=== PATIENT | female | born 1990 | race Caucasian/White ===

== ENCOUNTER 2017-02-24 17:24 | Inpatient (IN) | payer OTHER ==
[~2017-02-24] VITALS: Ht 165.1 cm; Wt 50.8 kg
[~2017-02-24 17:24] MED LIST: BCPILLS PO; IBUP-1451 PO; ONDA4TAB46 PO
[2017-02-24] MEDS ORDERED: SODIUM CHLORIDE 0.9% 1000ML 1,000 ML IV STA (17:50)
[2017-02-24] MEDS ORDERED: ONDANSETRON INJ 2 MG/ML 2 ML VIAL IV STA (17:50)
[2017-02-24] MEDS ORDERED: GI COCKTAIL PO ONE (18:00)
[2017-02-24] MEDS ORDERED: ALUMINUM/MAGNESIUM SUSP 30 ML UDC ONE (18:08)
[2017-02-24] MEDS ORDERED: LIDOCAINE HCL 2% VISC SOLN 20 ML UDC ONE (18:08)
[2017-02-24 18:27] LABS: BASO % 0.1 %; BASO ABS # 0.02 K/uL (0-0.2); COMPLETE YES; EOS % 1.2 %; HEMATOCRIT 41.1 % (37-47); IG% 0.3 %; LYMPH % 13.1 %; LYMPH ABS # 2.33 K/uL (1.2-3.4); MEAN CELL VOLUME 91.1 fL (80-100); MEAN CORPUSCULAR HEMOGLOBIN 32.8 pg (25-34); MEAN PLATELET VOLUME 9.9 fL (7.4-10.4); MONO % 7.9 %; NEUT % 77.4 %; PLATELET COUNT 222 K/uL (130-400); RED BLOOD COUNT 4.51 M/uL (4.2-5.4); WHITE BLOOD COUNT 17.81 K/uL (4.8-10.8)
[2017-02-24 18:32] LABS: MANUAL MICROSCOPIC REQUIRED? YES; REVIEW REQ? NO; SULFASALICYLIC ACID POS (NEG); URINE APPEARANCE SLIGHTLY CLOUDY (CLEAR); URINE COLOR ORANGE; URINE SPECIFIC GRAVITY 1.035 (1.000-1.030)
[2017-02-24 18:38] LABS: URINE BACTERIA 1+ (NEG); URINE RBC 0-4 /hpf (0-4)
[2017-02-24 18:38] LABS: BUN/CREATININE RATIO 10.4 (10-20); CALCIUM 9.5 mg/dl (8.5-10.1); CREATININE 0.71 mg/dl (0.60-1.20); POTASSIUM 3.8 mmol/L (3.5-5.1)
--- NOTE | 2017-02-24 18:38 | DIAGNOSTIC IMAGING REPORT ---
PA CHEST WITH ABDOMINAL SERIES CLINICAL HISTORY: Right upper quadrant abdominal pain. Nausea. FINDINGS: A PA chest radiograph is compared to study dated 04/05/2016. The cardiomediastinal silhouette is unremarkable. The lungs and pleural spaces are clear. No pneumothorax is seen. The bony thorax is grossly intact. Supine and erect abdominal radiographs are correlated with abdominal CT dated 04/17/2013. There is a nonobstructed abdominal bowel gas pattern. No evidence of intraperitoneal free air is seen. There is mild to moderate colonic fecal retention. There are no abnormal abdominal calcifications. Surgical clips are seen in the right lower quadrant and right pelvis. A phlebolith is noted in the left hemipelvis. The lumbosacral spine and bony pelvis appear intact. IMPRESSION: 1. No active disease in the chest. 2. Nonobstructed abdominal bowel gas pattern. Electronically signed by: Jeison Allen M.D. 02/24/2017 6:36 PM Dictated Date/Time: 02/24/2017 6:35 PM
[2017-02-24 18:39] LABS: URINE MUCUS PRESENT (NONE PRSENT); ZZUR CULT IF INDIC CLEAN CATCH YES
[2017-02-24] MEDS ORDERED: MoRPHine SULFATE 4 MG/ML 1 ML CARP\\VIAL IV STA (19:33)
--- NOTE | 2017-02-24 20:11 | DIAGNOSTIC IMAGING REPORT ---
ULTRASOUND RIGHT UPPER QUADRANT ABDOMEN CLINICAL HISTORY: Right upper quadrant abdominal pain. COMPARISON STUDY: Abdominal CT dated 04/17/2013. TECHNIQUE: Real-time, grayscale, and color flow sonography of the right upper quadrant of the abdomen was performed. Images are reviewed in the transverse and longitudinal planes. FINDINGS: Liver: The liver is normal in size and echotexture. There is no intrahepatic biliary ductal dilatation. The main portal vein is patent. Gallbladder: There are calcified gallstones and biliary sludge. The gallbladder is mildly distended. There is minimal edema of the gallbladder wall which does not appear thickened. No pericholecystic fluid is seen. A sonographic Pina's sign is reportedly absent. The common bile duct measures up to 0.5 cm in diameter. Pancreas: Visualized portions of the pancreatic head and body are normal in appearance. A prominent peripancreatic lymph node is incidentally noted. The splenic vein is patent. Right kidney: Survey images of the right kidney demonstrate normal size and echotexture. There is no hydronephrosis. Ascites: None. IMPRESSION: Cholelithiasis and biliary sludge with findings concerning for acute cholecystitis. Surgical consultation is advised. Electronically signed by: Jeison Allen M.D. 02/24/2017 8:09 PM Dictated Date/Time: 02/24/2017 8:05 PM
[2017-02-24] MEDS ORDERED: METRONIDAZOLE 500MG / 100ML NSS IV STA (20:37)
[2017-02-24] MEDS ORDERED: CIPROFLOXACIN 400MG / 200ML D5W IV STA (20:37)
[2017-02-24] MEDS ORDERED: MoRPHine SULFATE 10 MG/ML CARP/VIAL IV STA (20:39)
--- NOTE | 2017-02-24 21:16 | History and Physical ---
History & Physical Date Feb 24, 2017. Chief Complaint RUQ pain History of Present Illness The patient is a 27 year old female with complaints of RUQ pain. found on u/s to have evidence of acute cholecystitis for OR in am wbc- 17.8 Past Medical/Surgical History Medical Problems: (1) Asthma (2) Intrauterine (3) Ovarian cyst (4) Tobacco user (5) Vaginal delivery Surgical Problems: (1) S/P tonsillectomy (2) S/P wrist surgery Additional History Hepatic Disease: No Kidney Disease: No Hypertension: No Heart Disease: No Bleeding Tendencies: No Allergies Coded Allergies: Naproxen (Verified Allergy, Mild, RASH, 09/24/15) Penicillins (Verified Allergy, Unknown, RASH, 08/22/15) Tramadol (Verified Allergy, Unknown, ., 08/22/15) Codeine (Verified Adverse Reaction, Intermediate, NAUSEA, 08/22/15) Acetaminophen (Verified Adverse Reaction, Unknown, pain in abdomen, vomiting, 08/22/15) Home Medications No Active Prescriptions or Reported Meds Physical Examination Skin: warm/dry, no rash Eyes: sclerae normal Head: atraumatic Neck: supple Respiratory/Chest: no respiratory distress Cardiovascular: regular rate, rhythm Abdomen / GI: + pertinent finding (RUQ tenderness) Neurologic/Psych: alert Diagnosis acute cholecystitis Plan of Treatment admit, IV meds, atbx- for laparoscopic cholecystectomy tomorrow npo after midnight
[2017-02-24] MEDS ORDERED: ONDANSETRON INJ 2 MG/ML 2 ML VIAL IV PRN (21:30)
[2017-02-24] MEDS ORDERED: PROMETHAZINE HCL INJ 25 MG in SODIUM CHLORIDE 0.9% 50ML 50 ML IV PRN (21:30)
[2017-02-24] MEDS ORDERED: KETOROLAC TROMETHAMINE 30 MG/ML VIAL ONE (21:38)
[2017-02-24] MEDS ORDERED: PROMETHAZINE HCL INJ 12.5 MG in SODIUM CHLORIDE 0.9% 50ML 50 ML IV PRN (22:00)
[2017-02-24 22:10] VITALS: BP 101/67; PULSE 73; TEMP 37.4; O2SAT 98; Ht 165.1 cm; Wt 50.8 kg
[2017-02-24] MEDS: KETOROLAC TROMETHAMINE 30 MG/ML VIAL IV. SCH (22:25)
[2017-02-24] MEDS: LACTATED RINGER'S 1000ML 1,000 ML IV SCH (22:26)
[2017-02-24] MEDS: HYDROmorphone INJ 0.5 MG/0.5 ML SYR IV PRN (22:35)
[2017-02-24 23:16] VITALS: BP 102/66; PULSE 68; TEMP 37; O2SAT 97
--- NOTE | 2017-02-24 23:59 | EMERGENCY ROOM VISIT NOTE ---
History Report prepared by Alber: Azael Kaye Under the Supervision of: Dr. Jose Evans D.O. First contact with patient: 17:39 Chief Complaint: ABDOMINAL PAIN Stated Complaint: PAIN IN UPPER ABDOMINAL AREA History of Present Illness The patient is a 27 year old female who presents to the Emergency Room with complaints of worsening abdominal pain beginning 4-5 days ago. The patient states her discomfort is just under the right rib, and she has never had this before. She reports she vomited the first night she had it, but she has not since. The patient notes she has been experiencing constant nausea and a mild cough. She states eating makes her discomfort worse. The patient reports she had a hysterectomy and appendectomy 9 months ago because of her history with endometriosis. She notes she still has her gallbladder. The patient states her last bowel movement was this morning. She denies blood in stool, blood in urine , vaginal bleeding, vaginal discharge, fevers above 100.4, pain with urination, black stool, runny nose, and sorethroat. Source of History: patient Onset: 4-5 days ago Position: abdomen (below the right rib) Timing: worsening Modifying Factors (Worsening): eating Associated Symptoms: + cough, + nausea, + vomiting, No fevers, No sorethroat , No urinary symptoms Note: Denies: blood in stool, vaginal bleeding, vaginal discharge, black stool, and runny nose Review of Systems See HPI for pertinent positives & negatives. A total of 10 systems reviewed and were otherwise negative. Past Medical & Surgical Medical Problems: (1) Acute cholecystitis (2) Asthma (3) Intrauterine (4) Ovarian cyst (5) Tobacco user (6) Vaginal delivery Surgical Problems: (1) S/P tonsillectomy (2) S/P wrist surgery Family History Diabetes mellitus FHx: cancer FHx: gallbladder disease FHx: heart disease Hypertension Social History Smoking Status: Current Every Day Smoker Alcohol Use: occasionally Drug Use: none Marital Status: single Housing Status: lives with family Occupation Status: unemployed Current/Historical Medications No Active Prescriptions or Reported Meds Allergies Coded Allergies: Naproxen (Verified Allergy, Mild, RASH, 09/24/15) Penicillins (Verified Allergy, Unknown, RASH, 08/22/15) Tramadol (Verified Allergy, Unknown, ., 08/22/15) Codeine (Verified Adverse Reaction, Intermediate, NAUSEA, 08/22/15) Acetaminophen (Verified Adverse Reaction, Unknown, pain in abdomen, vomiting, 08/22/15) Physical Exam Vital Signs Date Time Temp Pulse Resp B/P (MAP) Pulse Ox O2 Delivery O2 Flow Rate FiO2 02/24/17 20:14 77 15 119/77 99 Room Air 02/24/17 19:25 83 19 109/85 99 Room Air 02/24/17 17:35 37.1 78 18 123/79 96 Room Air Physical Exam GENERAL: Sitting up in bed, disheveled, alert, minimal distress, non-toxic, holding right upper quadrant. EYE EXAM: normal conjunctiva, PERRL and EOM's grossly intact OROPHARYNX: no exudate, no erythema, lips, buccal mucosa, and tongue normal and mucous membranes are moist NECK: supple, no nuchal rigidity, no adenopathy, non-tender LUNGS: Clear to auscultation. Normal chest wall mechanics HEART: no murmurs, S1 normal and S2 normal ABDOMEN: abdomen soft, tender in the right upper quadrant, normo-active bowel sounds, no masses, no rebound or guarding. BACK: Back is symmetrical on inspection and there is no deformity, no midline tenderness, no CVA tenderness. SKIN: no rashes and no bruising UPPER EXTREMITIES: upper extremities are grossly normal. LOWER EXTREMITIES: No pitting edema. NEURO EXAM: Normal sensorium, cranial nerves II-XII grossly intact, normal speech, no gross weakness of arms, no gross weakness of legs. Medical Decision & Procedures ER Provider Diagnostic Interpretation: Radiology results as stated below per my review and the radiologist's interpretation: PA CHEST WITH ABDOMINAL SERIES CLINICAL HISTORY: Right upper quadrant abdominal pain. Nausea. FINDINGS: A PA chest radiograph is compared to study dated 04/05/2016. The cardiomediastinal silhouette is unremarkable. The lungs and pleural spaces are clear. No pneumothorax is seen. The bony thorax is grossly intact. Supine and erect abdominal radiographs are correlated with abdominal CT dated 04/17/2013. There is a nonobstructed abdominal bowel gas pattern. No evidence of intraperitoneal free air is seen. There is mild to moderate colonic fecal retention. There are no abnormal abdominal calcifications. Surgical clips are seen in the right lower quadrant and right pelvis. A phlebolith is noted in the left hemipelvis. The lumbosacral spine and bony pelvis appear intact. IMPRESSION: 1. No active disease in the chest. 2. Nonobstructed abdominal bowel gas pattern. Electronically signed by: Jeison Allen M.D. 02/24/2017 6:36 PM Dictated Date/Time: 02/24/2017 6:35 PM ULTRASOUND RIGHT UPPER QUADRANT ABDOMEN CLINICAL HISTORY: Right upper quadrant abdominal pain. COMPARISON STUDY: Abdominal CT dated 04/17/2013. TECHNIQUE: Real-time, grayscale, and color flow sonography of the right upper quadrant of the abdomen was performed. Images are reviewed in the transverse and longitudinal planes. FINDINGS: Liver: The liver is normal in size and echotexture. There is no intrahepatic biliary ductal dilatation. The main portal vein is patent. Gallbladder: There are calcified gallstones and biliary sludge. The gallbladder is mildly distended. There is minimal edema of the gallbladder wall which does not appear thickened. No pericholecystic fluid is seen. A sonographic Pina's sign is reportedly absent. The common bile duct measures up to 0.5 cm in diameter. Pancreas: Visualized portions of the pancreatic head and body are normal in appearance. A prominent peripancreatic lymph node is incidentally noted. The splenic vein is patent. Right kidney: Survey images of the right kidney demonstrate normal size and echotexture. There is no hydronephrosis. Ascites: None. IMPRESSION: Cholelithiasis and biliary sludge with findings concerning for acute cholecystitis. Surgical consultation is advised. Electronically signed by: Jeison Allen M.D. 02/24/2017 8:09 PM Dictated Date/Time: 02/24/2017 8:05 PM Laboratory Results 02/24/17 17:59 Red Blood Count 4.51, Mean Corpuscular Volume 91.1, Mean Corpuscular Hemoglobin 32.8, Mean Corpuscular Hemoglobin Concent 36.0, Mean Platelet Volume 9.9, Neutrophils (%) (Auto) 77.4, Lymphocytes (%) (Auto) 13.1, Monocytes (%) (Auto) 7.9, Eosinophils (%) (Auto) 1.2, Basophils (%) (Auto) 0.1, Neutrophils # (Auto) 13.78, Lymphocytes # (Auto) 2.33, Monocytes # (Auto) 1.40, Eosinophils # (Auto) 0.22, Basophils # (Auto) 0.02 02/24/17 17:59 Test 02/24/17 00:00 02/24/17 17:59 Urine Color ORANGE Urine Appearance SLIGHTLY CLOUDY (CLEAR) Urine pH (4.5-7.5) Urine Specific [place] 1.035 (1.000-1.030) Urine Protein (NEG) Urine Glucose (UA) (NEG) Urine Ketones (NEG) Urine Occult Blood (NEG) Urine Nitrite (NEG) Urine Bilirubin (NEG) Urine Urobilinogen (NEG) Urine Leukocyte Esterase (NEG) Urine RBC 0-4 /hpf (0-4) Urine WBC 1-5 /hpf (0-5) Urine Epithelial Cells >30 /lpf (0-5) Urine Bacteria 1+ (NEG) Urine Mucus PRESENT (NONE PRSENT) Urine Test NEG (NEG) White Blood Count 17.81 K/uL (4.8-10.8) Red Blood Count 4.51 M/uL (4.2-5.4) Hemoglobin 14.8 g/dL (12.0-16.0) Hematocrit 41.1 % (37-47) Mean Corpuscular Volume 91.1 fL (80-100) Mean Corpuscular Hemoglobin 32.8 pg (25-34) Mean Corpuscular Hemoglobin Concent 36.0 g/dl (32-36) Platelet Count 222 K/uL (130-400) Mean Platelet Volume 9.9 fL (7.4-10.4) Neutrophils (%) (Auto) 77.4 % Lymphocytes (%) (Auto) 13.1 % Monocytes (%) (Auto) 7.9 % Eosinophils (%) (Auto) 1.2 % Basophils (%) (Auto) 0.1 % Neutrophils # (Auto) 13.78 K/uL (1.4-6.5) Lymphocytes # (Auto) 2.33 K/uL (1.2-3.4) Monocytes # (Auto) 1.40 K/uL (0.11-0.59) Eosinophils # (Auto) 0.22 K/uL (0-0.5) Basophils # (Auto) 0.02 K/uL (0-0.2) RDW Standard Deviation 42.1 fL (36.4-46.3) RDW Coefficient of Variation 12.6 % (11.5-14.5) Immature Granulocyte % (Auto) 0.3 % Immature Granulocyte # (Auto) 0.06 K/uL (0.00-0.02) Anion Gap 6.0 mmol/L (3-11) Est Creatinine Clear Calc Drug Dose 96.3 ml/min Estimated GFR () 136.2 Estimated GFR (Non- 117.6 BUN/Creatinine Ratio 10.4 (10-20) Calcium Level 9.5 mg/dl (8.5-10.1) Total Bilirubin 0.6 mg/dl (0.2-1) Direct Bilirubin 0.2 mg/dl (0-0.2) Aspartate Amino Transf (AST/SGOT) 19 U/L (15-37) Alanine Aminotransferase (ALT/SGPT) 21 U/L (12-78) Alkaline Phosphatase 86 U/L (45-117) Total Protein 8.1 gm/dl (6.4-8.2) Albumin 3.4 gm/dl (3.4-5.0) Lipase 68 U/L (73-393) Laboratory results per my review. Medications Administered Medications (Trade) Dose Ordered Sig/Pilo Route Start Time Stop Time Status Last Admin Dose Admin Sodium Chloride 1,000 ml @ 999 mls/hr Q1H1M STAT IV 02/24/17 17:50 02/24/17 18:50 DC 02/24/17 18:13 999 MLS/HR Ondansetron HCl (Zofran Inj) 4 mg NOW STAT IV 02/24/17 17:50 02/24/17 17:51 DC 02/24/17 18:11 4 MG Lidocaine HCl (Viscous Lidocaine 2% Soln) 20 ml STK-MED ONCE .ROUTE 02/24/17 18:08 02/24/17 18:09 DC 02/24/17 18:12 10 ML Al Hydroxide/Mg Hydroxide (Maalox Susp) 30 ml STK-MED ONCE .ROUTE 02/24/17 18:08 02/24/17 18:09 DC 02/24/17 18:12 30 ML Morphine Sulfate (MoRPHine SULFATE INJ) 4 mg NOW STAT IV 02/24/17 19:33 02/24/17 19:34 DC 02/24/17 20:13 4 MG Metronidazole (Flagyl / Nss) 500 mg NOW STAT IV 02/24/17 20:37 02/24/17 20:39 DC 02/24/17 20:49 500 MG Ciprofloxacin/ Dextrose (Cipro / D5W) 400 mg NOW STAT IV 02/24/17 20:37 02/24/17 20:39 DC 02/24/17 20:49 400 MG Morphine Sulfate (MoRPHine SULFATE INJ) 6 mg NOW STAT IV 02/24/17 20:39 02/24/17 20:40 DC 02/24/17 20:50 6 MG Lactated Ringer's 1,000 ml @ 75 mls/hr [id number] IV 02/24/17 21:16 03/26/17 21:15 02/24/17 22:26 75 MLS/HR ED Course ED COURSE: Vital signs were reviewed and showed normal vitals. The patients medical record was reviewed The above diagnostic studies were performed and reviewed. ED treatments and interventions as stated above. 1743: The patient was evaluated in room C11B. A complete history and physical examination was performed. 0: Ordered Ondansetron HCl 4mg IV, Sodium Chloride 1000 ml @ 999 mls/hr IV 1807: Ordered Maalox Susp 30ml .ROUTE, Lidocaine HCl 20ml .ROUTE 1932: Ordered Morphine Sulfate 4mg IV 2022: Upon reevaluation, the patient is resting. I discussed my findings with the patient and she understands and agrees with the treatment plan. 2034: I discussed the patient's case with Dr. Mohr, [facility] General Surgery. The patient will be evaluated for further management and care. 2036: Ordered Ciprofloxacin/Dextrose 400 mg IV, Metronidazole 500mg IV 2038: Ordered Morphine Sulfate 6mg IV Based on the patients age, coexisting illnesses, exam and lab findings the decision to treat as an inpatient was made. The patient remained stable while under my care. The patient will be evaluated for further management. Medical Decision Differential diagnoses includes but is not limited to gastritis, peptic ulcer disease, GERD, gallbladder disease, pancreatitis, small bowel obstruction, acute coronary syndrome, pericarditis, ischemic bowel, irritable bowel disease, irritable bowel syndrome, appendicitis, diverticulitis, malignancy, hernia, urinary tract infection, torsion, /ectopic (if female), perforation, trauma, infectious. Patient is a 27-year-old female who presents to ER for right upper quadrant abdominal pain which is worsening over the past 4 days. Leukocytosis of 17, 000. BMP all LFTs, bilirubin lipase is unremarkable. UA was negative. was negative. Ultrasound shows gallbladder wall thickening and sludge and stones suggesting cholecystitis. Her exam along with her leukocytosis helps to confirm this diagnosis. Discussed with general surgery. Patient was given IV antibiotics. She is given IV morphine. She was updated bedside admitted to general surgery for acute cholecystitis. Medication Reconcilliation Current Medication List: was personally reviewed by me Blood Pressure Screening Patient's blood pressure: Normal blood pressure Blood pressure disposition: Did not require urgent referral Consults Time Called: 2031 Consulting Physician: Dr. Mohr, [facility] General Surgery Returned Call: 2034 I discussed the patient's case with Dr. Mohr, [facility] Hospitalist. The patient will be evaluated for further management and care. Impression Primary Impression: Acute cholecystitis Scribe Attestation The scribe's documentation has been prepared under my direction and personally reviewed by me in its entirety. I confirm that the note above accurately reflects all work, treatment, procedures, and medical decision making performed by me. Departure Information Dispostion Being Evaluated By Hospitalist Prescriptions No Active Prescriptions or Reported Meds Referrals Emili [email or web address]. (PCP) Patient Instructions My [facility]
[2017-02-25] VITALS (8 sets, daily range): BP systolic 99–119; BP diastolic 64–72; PULSE 50–76; TEMP 37–37.2; O2SAT 98–100
[2017-02-25] MEDS: HYDROmorphone INJ 0.5 MG/0.5 ML SYR IV PRN ×5 (01:52→19:45)
[2017-02-25] MEDS: KETOROLAC TROMETHAMINE 30 MG/ML VIAL IV. SCH ×3 (03:01→15:35)
--- NOTE | 2017-02-25 05:19 | Surgery Progress Note ---
Surgery Progress Note Date of Service Feb 25, 2017. Subjective sleeping/ awakened- doing ok Objective Vital Signs: Date Time Temp Pulse Resp B/P (MAP) Pulse Ox O2 Delivery O2 Flow Rate FiO2 02/24/17 23:42 Room Air 02/24/17 23:16 37.0 68 16 102/66 (78) 97 Room Air 02/24/17 22:10 37.4 73 16 101/67 98 Room Air 02/24/17 21:44 77 14 121/81 99 Room Air 02/24/17 20:14 77 15 119/77 99 Room Air 02/24/17 19:25 83 19 109/85 99 Room Air 02/24/17 17:35 37.1 78 18 123/79 96 Room Air General Appearance: no apparent distress Respiratory/Chest: no respiratory distress Laboratory Results: Results Past 24 Hours Test 02/24/17 17:59 Range/Units White Blood Count 17.81 4.8-10.8 K/uL Red Blood Count 4.51 4.2-5.4 M/uL Hemoglobin 14.8 12.0-16.0 g/dL Hematocrit 41.1 37-47 % Mean Corpuscular Volume 91.1 80-100 fL Mean Corpuscular Hemoglobin 32.8 25-34 pg Mean Corpuscular Hemoglobin Concent 36.0 32-36 g/dl Platelet Count 222 130-400 K/uL Mean Platelet Volume 9.9 7.4-10.4 fL Neutrophils (%) (Auto) 77.4 % Lymphocytes (%) (Auto) 13.1 % Monocytes (%) (Auto) 7.9 % Eosinophils (%) (Auto) 1.2 % Basophils (%) (Auto) 0.1 % Neutrophils # (Auto) 13.78 1.4-6.5 K/uL Lymphocytes # (Auto) 2.33 1.2-3.4 K/uL Monocytes # (Auto) 1.40 0.11-0.59 K/uL Eosinophils # (Auto) 0.22 0-0.5 K/uL Basophils # (Auto) 0.02 0-0.2 K/uL RDW Standard Deviation 42.1 36.4-46.3 fL RDW Coefficient of Variation 12.6 11.5-14.5 % Immature Granulocyte % (Auto) 0.3 % Immature Granulocyte # (Auto) 0.06 0.00-0.02 K/uL Sodium Level 137 136-145 mmol/L Potassium Level 3.8 3.5-5.1 mmol/L Chloride Level 103 98-107 mmol/L Carbon Dioxide Level 28 21-32 mmol/L Anion Gap 6.0 3-11 mmol/L Blood Urea Nitrogen 7 7-18 mg/dl Creatinine 0.71 0.60-1.20 mg/dl Est Creatinine Clear Calc Drug Dose 96.3 ml/min Estimated GFR () 136.2 Estimated GFR (Non- 117.6 BUN/Creatinine Ratio 10.4 10-20 Random Glucose 95 70-99 mg/dl Calcium Level 9.5 8.5-10.1 mg/dl Total Bilirubin 0.6 0.2-1 mg/dl Direct Bilirubin 0.2 0-0.2 mg/dl Aspartate Amino Transf (AST/SGOT) 19 15-37 U/L Alanine Aminotransferase (ALT/SGPT) 21 12-78 U/L Alkaline Phosphatase 86 45-117 U/L Total Protein 8.1 6.4-8.2 gm/dl Albumin 3.4 3.4-5.0 gm/dl Lipase 68 73-393 U/L Assessment & Plan 02/25/17- for lap luciano today- no acute chgs
[2017-02-25] MEDS: CIPROFLOXACIN / D5W 400 MG in PREMIXED IN D5W 200 ML IV SCH ×2 (09:06→21:24)
[2017-02-25] MEDS: LACTATED RINGER'S 1000ML 1,000 ML IV SCH ×2 (10:41→23:40)
[2017-02-25] MEDS: HYDROmorphone INJ 1 MG/ML SYR IV PRN ×6 (13:50→22:58)
[2017-02-25] MEDS ORDERED: LABETALOL HCL IV 5 MG/ML 20ML IV PRN (14:30)
[2017-02-25] MEDS ORDERED: EpHEDrine SULFATE INJ 50 MG/ML AMP IV PRN (14:30)
[2017-02-25] MEDS ORDERED: ONDANSETRON INJ 2 MG/ML 2 ML VIAL IV PRN (14:30)
[2017-02-25] MEDS ORDERED: MEPERIDINE HCL 25 MG/ML CARP IV PRN (14:30)
[2017-02-25] MEDS ORDERED: ATROPINE SULFATE 0.1 MG/ML 5ML SYR IV PRN (14:30)
[2017-02-25] MEDS ORDERED: PROPOFOL IV EMULSION 10 MG/ML 20 ML VIAL IV ONE (15:21)
[2017-02-25] MEDS ORDERED: LIDOCAINE HCL 2% 2 ML VIAL (20MG/ML) ONE (15:21)
[2017-02-25] MEDS ORDERED: FENTANYL CITRATE INJ 50 MCG/1 ML 2 ML VIAL ONE ×5 (15:22→18:10)
[2017-02-25] MEDS ORDERED: ROCURONIUM BROMIDE 10 MG/ML 5 ML VIAL IV ONE (15:22)
[2017-02-25] MEDS ORDERED: ONDANSETRON INJ 2 MG/ML 2 ML VIAL ONE ×2 (15:22→17:54)
[2017-02-25] MEDS ORDERED: MIDAZOLAM HCL 1 MG/ML 2ML VIAL ONE (15:22)
[2017-02-25] MEDS ORDERED: NEOSTIGMINE METHYLSULFATE 5 MG/5 ML SYR ONE (15:23)
[2017-02-25] MEDS ORDERED: GLYCOPYRROLATE INJ 0.2 MG/ML VIAL ONE (15:23)
[2017-02-25] MEDS ORDERED: DEXAMETHASONE SOD INJ 4 MG/ML VIAL ONE (15:23)
[2017-02-25] MEDS ORDERED: BUPIVACAINE 0.5 % 5 MG/1 ML MPF 30ML VIAL ONE (16:02)
[2017-02-25] MEDS ORDERED: CONRAY 60% 50 ML VIAL ONE (16:52)
--- NOTE | 2017-02-25 17:46 | [facility] Operative Report ---
Operative Report Operative Date Feb 25, 2017. Pre-Operative Diagnosis acute cholecystitis Post-Operative Diagnosis acute cholecystitis and severe chronic cholecystitis Procedure(s) Performed Laparoscopic Cholecystectomy with drain Surgeon Dr. Mohr Jack Winder Surgeon(s) none Estimated Blood Loss 30mL Findings severe acute and chronic inflammation and adhesions, hydrops Specimens A: gallbladder & contents Drains #15 Rd TARYN Anesthesia gen Complication(s) None Disposition Recovery Room / PACU I attest to the content of the Intraoperative Record and any orders documented therein. Any exceptions are noted below.
--- NOTE | 2017-02-25 18:14 | Anesthesiology Progress Note ---
Anesthesia Post Op Note Date & Time Feb 25, 2017 at 18:14 Vital Signs Pain Intensity: 10 Vital Signs Past 12 Hours Date Time Temp Pulse Resp B/P (MAP) Pulse Ox O2 Delivery O2 Flow Rate FiO2 02/25/17 17:51 37.3 54 20 129/69 100 Oxymask 10 02/25/17 14:55 37.0 50 18 109/69 (82) 100 Room Air 02/25/17 08:04 37.1 56 16 107/68 (81) 98 Room Air 02/25/17 07:25 Room Air Notes Mental Status: alert / awake / arousable, participated in evaluation Pt Amnestic to Procedure: Yes Nausea / Vomiting: adequately controlled Pain: adequately controlled Airway Patency, RR, SpO2: stable & adequate BP & HR: stable & adequate Hydration State: stable & adequate Anesthetic Complications: no major complications apparent
[2017-02-25] MEDS: FENTANYL CITRATE INJ 50 MCG/1 ML 2 ML VIAL IV PRN ×2 (18:22→18:27)
[2017-02-25] MEDS ORDERED: HYDROmorphone INJ 2 MG/ML SYR/VIAL ONE (18:30)
--- NOTE | 2017-02-25 23:22 | OPERATIVE REPORT ---
DATE OF OPERATION: 02/25/2017 NAME OF OPERATION: Laparoscopic cholecystectomy with drainage. PREOPERATIVE DIAGNOSIS: Acute cholecystitis. POSTOPERATIVE DIAGNOSIS: Severe acute and chronic cholecystitis with hydrops. STAFF SURGEON: Ru Mohr MD. ANESTHESIA: General. FINDINGS: The patient had severe adhesions to the gallbladder and very severe acute and chronic inflammation with chronic scar tissue and also hydrops of the gallbladder. DESCRIPTION OF PROCEDURE: The patient was brought in the operating room and placed on the operating table in supine position. Her abdomen was prepped and draped in usual fashion. Pneumatic stockings and orogastric tube were placed. Incision was made below the umbilicus as the patient did have a piercing above the umbilicus. Dissection was carried down to the fascia, placing a Veress needle producing pneumoperitoneum. The gallbladder was not visualized initially because it was covered with tissue. The omentum and stomach were adherent to the gallbladder. These were relatively easily taken down showing acute adhesions, but the gallbladder was severely scarred and thickened indicating severe acute and chronic cholecystitis. I aspirated of bile which was clear, indicating hydrops. Dissection was carried out at the melissa hepatis showing severe scar tissue. I was gradually able to identify the cystic duct going into the gallbladder as well as what I felt was the common bile duct. Cystic duct was clipped and transected. Then the cystic artery identified, clipped and transected. The gallbladder was then dissected away from the liver bed. There was very severe chronic scar tissue in the posterior wall. The gallbladder was placed in an Endobag. After appropriate hemostasis and irrigation, I did place a small piece of Surgicel in an area near the melissa hepatitis. A 15 round Michael-García drain was placed through the lateral 5 mm port in the subhepatic space and laterally, secured to the skin using 3-0 nylon suture. Using a 5 mm scope, the gallbladder was removed through the umbilical site. I did have to enlarge the skin incision and the fascial defect to remove the gallbladder. Fascia at the umbilicus closed using interrupted 0 Vicryl suture. The skin at the umbilicus closed using 5-0 Prolene suture. The other sites closed using subcuticular 4-0 Monocryl and Dermabond. The patient was transferred to recovery area in stable condition. I attest to the content of the Intraoperative Record and any orders documented therein. Any exception s are noted below.
[2017-02-25 23:28] LABS: HEMATOCRIT 34.2 % (37-47)
[2017-02-26 00:04] VITALS: BP 102/64; PULSE 48; TEMP 37.5; O2SAT 97
[2017-02-26] MEDS: HYDROmorphone INJ 1 MG/ML SYR IV PRN (02:03)
[2017-02-26 03:17] VITALS: BP 103/66; PULSE 54; TEMP 37.1; O2SAT 97
[2017-02-26] MEDS: HYDROmorphone INJ 0.5 MG/0.5 ML SYR IV PRN (05:18)
--- NOTE | 2017-02-26 05:32 | Surgery Progress Note ---
Surgery Progress Note Date of Service Feb 26, 2017. Subjective awake, alert expected TARYN drainage, dressings dry now Objective Vital Signs: Date Time Temp Pulse Resp B/P (MAP) Pulse Ox O2 Delivery O2 Flow Rate FiO2 02/26/17 03:17 37.1 54 16 103/66 (78) 97 Room Air 02/26/17 00:04 37.5 48 16 102/64 (77) 97 Room Air 02/25/17 22:07 37.0 76 18 100/64 (76) 98 Room Air 02/25/17 21:14 37.2 76 18 99/66 (77) 98 Room Air 02/25/17 20:10 37.2 68 18 119/68 (85) 100 Room Air 02/25/17 19:52 37.1 62 18 113/72 (86) 99 Room Air 02/25/17 19:18 37.2 53 18 107/69 (82) 98 Room Air 02/25/17 19:10 Room Air 02/25/17 19:10 98 Room Air 02/25/17 19:00 37.1 52 18 109/67 99 Room Air 02/25/17 18:50 37.1 57 18 101/68 99 Room Air 02/25/17 18:40 54 18 103/64 100 Room Air 02/25/17 18:30 60 18 108/67 100 Room Air 02/25/17 18:20 50 18 107/68 100 Room Air 02/25/17 18:10 50 20 119/69 100 Oxymask 10 02/25/17 18:00 54 20 124/69 100 Oxymask 10 02/25/17 17:51 37.3 54 20 129/69 100 Oxymask 10 02/25/17 14:55 37.0 50 18 109/69 (82) 100 Room Air 02/25/17 08:04 37.1 56 16 107/68 (81) 98 Room Air 02/25/17 07:25 Room Air General Appearance: no apparent distress Respiratory/Chest: no respiratory distress Abdomen: non distended, soft Incision(s): intact Laboratory Results: Results Past 24 Hours Test 02/25/17 23:03 02/26/17 05:00 Range/Units Hemoglobin 11.9 12.0-16.0 g/dL Hematocrit 34.2 37-47 % Assessment & Plan 02/26/17- s/p lap luciano w/ drain- very difficult operation secondary to scar tissue- cont to monitor for bleeding, cont IV atbx hold subcu Heparin, mobilize 02/25/17- for lap luciano today- no acute chgs 02/25/17- for lap luciano today- no acute chgs
[2017-02-26] MEDS: SODIUM CHLORIDE 0.9% 1000ML 1,000 ML IV SCH (06:01)
[2017-02-26] MEDS ORDERED: NALOXONE HCL 0.4 MG/1 ML VIAL/CARP IV PRN (06:15)
[2017-02-26 06:23] LABS: HEMATOCRIT 36.1 % (37-47); MEAN CELL VOLUME 91.4 fL (80-100); MEAN CORPUSCULAR HEMOGLOBIN 31.4 pg (25-34); MEAN CORPUSCULAR HGB CONC 34.3 g/dl (32-36); PLATELET COUNT 212 K/uL (130-400); RED BLOOD COUNT 3.95 M/uL (4.2-5.4); WHITE BLOOD COUNT 13.94 K/uL (4.8-10.8)
[2017-02-26 06:53] LABS: ALT/SGPT 33 U/L (12-78); AST/SGOT 33 U/L (15-37); BLOOD UREA NITROGEN 6 mg/dl (7-18); BUN/CREATININE RATIO 11.3 (10-20); CALCIUM 8.9 mg/dl (8.5-10.1); CARBON DIOXIDE 25 mmol/L (21-32); CHLORIDE 109 mmol/L (98-107); CREATININE 0.55 mg/dl (0.60-1.20); GLUCOSE 102 mg/dl (70-99); POTASSIUM 3.9 mmol/L (3.5-5.1); SODIUM 142 mmol/L (136-145)
[2017-02-26 06:57] LABS: ALB/GLOB RATIO 0.7 (0.9-2); ALKALINE PHOSPHATASE 86 U/L (45-117)
[2017-02-26 07:05] VITALS: BP 114/75; PULSE 68; TEMP 37.2; O2SAT 96
[2017-02-26] MEDS: HYDROmorphone HCL 0.5MG/ML 50 ML CASSETTE IV PRN ×3 (07:45→23:21)
[2017-02-26] MEDS: CIPROFLOXACIN / D5W 400 MG in PREMIXED IN D5W 200 ML IV SCH ×2 (09:49→21:21)
[2017-02-26 10:49] VITALS: BP 109/74; PULSE 75; TEMP 37.4; O2SAT 99
[2017-02-26] MEDS: LACTATED RINGER'S 1000ML 1,000 ML IV SCH (12:41)
[2017-02-26] MEDS ORDERED: NURSING VERBAL MED ORDER ONE (13:15)
[2017-02-26 15:20] VITALS: BP 110/71; PULSE 76; TEMP 37.3; O2SAT 97
[2017-02-26 19:26] VITALS: BP 119/82; PULSE 85; TEMP 37.6; O2SAT 97
[2017-02-27] VITALS (7 sets, daily range): BP systolic 107–162; BP diastolic 69–109; PULSE 62–67; TEMP 37.1–37.4; O2SAT 97–99
[2017-02-27] MEDS: LACTATED RINGER'S 1000ML 1,000 ML IV SCH (01:54)
--- NOTE | 2017-02-27 05:40 | Surgery Progress Note ---
Surgery Progress Note Date of Service Feb 27, 2017. 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 Objective Vital Signs: Date Time Temp Pulse Resp B/P (MAP) Pulse Ox O2 Delivery O2 Flow Rate FiO2 02/27/17 04:36 37.3 67 16 107/69 (82) 98 Room Air 02/27/17 00:20 37.2 65 16 111/71 (84) 97 Room Air 02/27/17 00:00 Room Air 02/26/17 19:26 37.6 85 18 119/82 (94) 97 Room Air 02/26/17 16:20 Room Air 02/26/17 15:20 37.3 76 18 110/71 (84) 97 Room Air 02/26/17 10:49 37.4 75 16 109/74 (86) 99 Room Air 02/26/17 07:45 Room Air 02/26/17 07:05 37.2 68 16 114/75 (88) 96 Room Air General Appearance: no apparent distress Respiratory/Chest: no respiratory distress Abdomen: soft Incision(s): intact Laboratory Results: Results Past 24 Hours Test 02/26/17 05:49 Range/Units White Blood Count 13.94 4.8-10.8 K/uL Red Blood Count 3.95 4.2-5.4 M/uL Hemoglobin 12.4 12.0-16.0 g/dL Hematocrit 36.1 37-47 % Mean Corpuscular Volume 91.4 80-100 fL Mean Corpuscular Hemoglobin 31.4 25-34 pg Mean Corpuscular Hemoglobin Concent 34.3 32-36 g/dl RDW Standard Deviation 42.0 36.4-46.3 fL RDW Coefficient of Variation 12.5 11.5-14.5 % Platelet Count 212 130-400 K/uL Mean Platelet Volume 10.0 7.4-10.4 fL Sodium Level 142 136-145 mmol/L Potassium Level 3.9 3.5-5.1 mmol/L Chloride Level 109 98-107 mmol/L Carbon Dioxide Level 25 21-32 mmol/L Anion Gap 8.0 3-11 mmol/L Blood Urea Nitrogen 6 7-18 mg/dl Creatinine 0.55 0.60-1.20 mg/dl Est Creatinine Clear Calc Drug Dose 124.3 ml/min Estimated GFR () > 150.0 Estimated GFR (Non- 129.5 BUN/Creatinine Ratio 11.3 10-20 Random Glucose 102 70-99 mg/dl Calcium Level 8.9 8.5-10.1 mg/dl Total Bilirubin 0.5 0.2-1 mg/dl Direct Bilirubin 0.1 0-0.2 mg/dl Aspartate Amino Transf (AST/SGOT) 33 15-37 U/L Alanine Aminotransferase (ALT/SGPT) 33 12-78 U/L Alkaline Phosphatase 86 45-117 U/L Total Protein 6.7 6.4-8.2 gm/dl Albumin 2.7 3.4-5.0 gm/dl Globulin 4.0 2.5-4.0 gm/dl Albumin/Globulin Ratio 0.7 0.9-2 Assessment & Plan 02/27/17- overall stable- cont TELEPHONE WORKER, IV atbx, stop IV fluids regular diet, subcu Heparin 02/26/17- s/p lap luciano w/ drain- very difficult operation secondary to scar tissue- cont to monitor for bleeding, cont IV atbx hold subcu Heparin, mobilize 02/25/17- for lap luciano today- no acute chgs 02/26/17- s/p lap luciano w/ drain- very difficult operation secondary to scar tissue- cont to monitor for bleeding, cont IV atbx hold subcu Heparin, mobilize 02/25/17- for lap luciano today- no acute chgs
[2017-02-27] MEDS: SODIUM CHLORIDE 0.9% 1000ML 1,000 ML IV SCH (06:35)
[2017-02-27] MEDS: HYDROmorphone HCL 0.5MG/ML 50 ML CASSETTE IV PRN ×2 (07:05→10:54)
[2017-02-27 07:09] LABS: INR 1.1 (0.9-1.1); PROTHROMBIN TIME (PATIENT) 12.1 SECONDS (9.0-12.0)
[2017-02-27] MEDS: CIPROFLOXACIN / D5W 400 MG in PREMIXED IN D5W 200 ML IV SCH (07:58)
[2017-02-27] MEDS ORDERED: HEPARIN SOD 5000 UNIT/0.5 ML CARP SQ SCH (08:00)
[2017-02-27] MEDS ORDERED: NICOTINE 14 MG/24 HR TDSY TD SCH (09:00)
[2017-02-27] MEDS ORDERED: OXYCODONE/ACETAMINOPHEN 5-325 TAB PO PRN (15:00)
[2017-02-27] MEDS ORDERED: HYDROmorphone INJ 0.5 MG/0.5 ML SYR IV PRN (15:00)
[2017-02-27] MEDS ORDERED: HYDROmorphone INJ 1 MG/ML SYR IV PRN (15:00)
[2017-02-27] MEDS ORDERED: OXYC-57 PO (15:15)
--- NOTE | 2017-02-27 15:18 | Discharge Instructions ---
Discharge Instructions Date of Service Feb 27, 2017. Admission Reason for Admission: Acute Cholecystitis Discharge Discharge Diagnosis / Problem: laparoscopic cholecystectomy Discharge Goals Goal(s): Decrease discomfort Activity Recommendations Activity Limitations: as noted below Lifting Limitations: no more than 10 pounds Shower/Bathe: no limitations Driving or Machine Use: resume 3 days after discharge . Instructions / Follow-Up Instructions / Follow-Up Dr. Mohr's office in 2 days to have drain removed, call [phone] to schedule, [address] Current Hospital Diet Patient's current hospital diet: Regular Diet Discharge Diet Recommended Diet: Regular Diet Procedures Procedures Performed: Laparoscopic Cholecystectomy with drain Pending Studies Studies pending at discharge: no Medical Emergencies . Who to Call and When: Medical Emergencies: If at any time you feel your situation is an emergency, please call 911 immediately. . Non-Emergent Contact Non-Emergency issues call your: Surgeon Call Non-Emergent contact if: you have a fever, temperature is above 101.5, your pain is not controlled, wound has increased pain . "Provider Documentation" section prepared by Brady Durbin. . VTE Core Measure Inpt VTE Proph given/why not?: SCD's
[2017-02-27] MEDS ORDERED: CIPR1TAB10 PO (15:19)
[2017-02-27] MEDS: OXYCODONE/ACETAMINOPHEN 5-325 TAB PO PRN ×2 (16:15→17:16)
--- NOTE | 2017-02-28 09:30 | DISCHARGE SUMMARY ---
PRIMARY DISCHARGE DIAGNOSIS: Acute and chronic cholecystitis with hydrops. PROCEDURE PERFORMED: Laparoscopic cholecystectomy. SECONDARY DISCHARGE DIAGNOSIS: Asthma. HOSPITAL COURSE: The patient is a 27-year-old female who presented to Emergency Department with complaint of right upper quadrant pain over several days. Her white count was 17,000. Ultrasound showed cholelithiasis with sludge and minimal wall edema. She was admitted to surgery service overnight and kept on IV antibiotics and laparoscopic cholecystectomy planned for the morning. She was taken to the operating room the next day. The procedure was well tolerated, although difficult. A drain was placed. Postoperatively, she required [employer]CH[employer]ECT for analgesia. Her diet was advanced over the next 2 days. By postoperative day 3, she was tolerating regular diet and oral analgesics and was stable for discharge. TARYN drainage was 15 mL overnight. The drain will be removed in the office. DISCHARGE INSTRUCTIONS: Discharge home. Follow up in the office in 2 days for removal of the drain and with Dr. Mohr the following week. DISCHARGE MEDICATIONS: Percocet 1-2 tablets every 4 hours as needed and Cipro 500 mg p.o. b.i.d. x5 days. MTDD
== END 2017-02-27 18:55 | disposition home or self-care (01) | DRG 416 ==
LOC: C.EDB 17:25 → C.MSW 21:22 → ENRESERV 21:36
PROVIDERS: ADMIT Surgery; ATTEND Surgery
PROC: 0FT40ZZ Resection of Gallbladder, Open Approach (ICD-10-PCS; principal; 2017-02-25 13:00)
DX: K81.2 Acute cholecystitis with chronic cholecystitis (principal); J45.909 Unspecified asthma, uncomplicated; F17.200 Nicotine dependence, unspecified, uncomplicated; Z83.3 Family history of diabetes mellitus; Z80.9 Family history of malignant neoplasm, unspecified; Z82.49 Family history of ischemic heart disease and other diseases of the circulatory system

== ENCOUNTER → 2017-05-29 | Outpatient (CLI) | payer OTHER ==
[~2017-05-29] MED LIST changes: -BCPILLS PO; +CIPR1TAB10 PO; -IBUP-1451 PO; -ONDA4TAB46 PO; +OXYC-57 PO
--- NOTE | 2017-05-29 10:46 | DIAGNOSTIC IMAGING REPORT ---
ULTRASOUND ABDOMEN COMPLETE CLINICAL HISTORY: Generalized abdominal pain. COMPARISON STUDY: Abdominal CT dated 04/17/2013 TECHNIQUE: Real-time, grayscale, and color flow sonography of the abdomen was performed. Images are reviewed in the transverse and longitudinal planes. FINDINGS: Liver: The liver is normal in size and echotexture. There is no intrahepatic biliary ductal dilatation. The main portal vein is patent. Gallbladder: The gallbladder is surgically absent. The common bile duct measures up to 0.5 cm in diameter. Pancreas: Visualized portions of the pancreatic head and body are normal in appearance. Spleen: The spleen is normal in size and echotexture, measuring 10.6 cm in length. Kidneys: The kidneys are normal in size and echotexture. There is no hydronephrosis. The right kidney measures 9.0 cm in length and the left kidney measures 9.5 cm in length. No shadowing calculi are identified. Abdominal vasculature: Visualized portions of the abdominal aorta and IVC are normal as imaged. Ascites: None. IMPRESSION: Unremarkable sonographic assessment of the abdomen noting status post cholecystectomy. Electronically signed by: Jeison Allen M.D. 05/29/2017 10:45 AM Dictated Date/Time: 05/29/2017 10:34 AM
== END | disposition home or self-care (01) ==
LOC: C.ULTR 09:57
PROVIDERS: ATTEND Family Medicine
DX: R10.9 Unspecified abdominal pain (principal); Z90.49 Acquired absence of other specified parts of digestive tract

== ENCOUNTER → 2017-06-05 | Outpatient (CLI) | payer OTHER ==
[~2017-06-05] MED LIST changes: +OPTIRAY 320 IV PRN
--- NOTE | 2017-06-05 08:28 | DIAGNOSTIC IMAGING REPORT ---
CT SCAN OF THE ABDOMEN AND PELVIS WITH IV CONTRAST CLINICAL HISTORY: Epigastric abdominal pain. COMPARISON STUDY: Abdominal ultrasound dated 05/29/2017. Abdominal CT dated 04/17/2013. TECHNIQUE: Following the IV administration of 116 cc of Optiray 320, CT scan of the abdomen and pelvis is performed from the lung bases to the proximal femora. Images are reviewed in the axial, sagittal, and coronal planes. IV contrast was administered without complication. A dose lowering technique was utilized adhering to the principles of ALARA. CT DOSE: 406.10 mGycm FINDINGS: Lung bases: The heart is normal in size and without pericardial effusion. There are trace pleural effusions with dependent atelectasis. Liver: The contrast-enhanced liver is normal in size and contour. The liver demonstrates diminished attenuation consistent with steatosis. There is no intrahepatic biliary ductal dilatation. The hepatic veins and portal veins are patent. There is a subtle 2.0 cm hypervascular lesion in the right lobe seen on image #59. Gallbladder: Surgically absent noting clips in the gallbladder fossa. Spleen: Normal in size and attenuation. Pancreas: Unremarkable. Adrenal glands: Unremarkable. Kidneys: The contrast enhanced kidneys are normal in size and without hydronephrosis. The kidneys enhance symmetrically. A subcentimeter cyst is noted in the interpolar right kidney. Abdominal vasculature: The abdominal aorta is normal in course and caliber. Bowel: Moderate constipation is observed. No bowel obstruction is seen. The appendix is normal in appearance. Peritoneum: There is no intraperitoneal free air or abdominal ascites. There is a small fat-containing umbilical hernia. Lymphadenopathy: None. Pelvic viscera: The bladder is normal as visualized. The uterus is surgically absent. No adnexal lesion is seen. Skeletal structures: No lytic or blastic lesions are seen. IMPRESSION: 1. There are no acute infectious or inflammatory findings in the abdomen or pelvis. 2. Trace pleural effusions. 3. Mild hepatic steatosis. 4. There is a subtle 2.0 cm hypervascular lesion in the right lobe of liver. This was not clearly seen on prior studies. This is pathologically indeterminant, and could present a focal nodular hyperplasia, focal fatty sparing, or possibly a hepatic adenoma. Follow-up with an MRI of the liver is recommended for further characterization. 5. Mild to moderate constipation. 6. Additional findings as above. Electronically signed by: Jeison Allen M.D. 06/05/2017 8:27 AM Dictated Date/Time: 06/05/2017 8:12 AM
== END | disposition home or self-care (01) ==
LOC: C.CTS 07:10
PROVIDERS: ATTEND Internal Medicine Gastroenterology
DX: K76.9 Liver disease, unspecified (principal); K59.00 Constipation, unspecified; D72.829 Elevated white blood cell count, unspecified

== ENCOUNTER → 2017-06-15 | Outpatient (CLI) | payer OTHER ==
[~2017-06-15] MED LIST changes: +GADOXETATE DISODIUM (NON-WT BASED PROCEDURE) IV PRN; -OPTIRAY 320 IV PRN
--- NOTE | 2017-06-15 08:45 | DIAGNOSTIC IMAGING REPORT ---
MRI LIVER COMBO CLINICAL HISTORY: Abnormal CT scan. Hepatic mass. TECHNIQUE: Imaging was performed prior to and following IV contrast injection (10 cc Eovist). COMPARISON STUDY: CT scan dated 06/05/2017 FINDINGS: Imaging was performed in the axial and coronal planes, before and after the administration of contrast. There is no evidence of abdominal aortic dilatation. No splenic masses are visualized. No pancreatic masses are visualized. The gallbladder surgically absent. There is no ductal dilatation. There is an 11 mm right renal cyst. There is an 18 mm mass medial aspect of the right hepatic lobe. This lesion abuts the inferior vena cava. This lesion is relatively isointense to liver on T1 and T2 weighted images. This lesion is hypervascular with early arterial opacification. On delayed images, this lesion is isointense to liver parenchyma. The signal and enhancement characteristics are indicative of focal nodular hyperplasia. IMPRESSION: 18 mm mass within the right lobe of the liver. The signal and enhancement characteristics are indicative of focal nodular hyperplasia Electronically signed by: Nicholas Hennessy M.D. 06/15/2017 8:44 AM Dictated Date/Time: 06/15/2017 8:37 AM
== END | disposition home or self-care (01) ==
LOC: C.MRI 07:06
PROVIDERS: ATTEND Internal Medicine Gastroenterology
DX: R93.8 Abnormal findings on diagnostic imaging of other specified body structures (principal); K76.89 Other specified diseases of liver

== ENCOUNTER 2017-08-17 12:21 | Emergency (ER) | payer OTHER ==
[~2017-08-17] VITALS: Ht 152.4 cm; Wt 72.9 kg
[~2017-08-17 12:21] MED LIST changes: -GADOXETATE DISODIUM (NON-WT BASED PROCEDURE) IV PRN
[2017-08-17 12:32] VITALS: TEMP 36.7; Ht 152.4 cm; Wt 72.9 kg
[2017-08-17] MEDS ORDERED: ONDA4TAB46 PO (12:49)
--- NOTE | 2017-08-17 12:58 | EMERGENCY ROOM VISIT NOTE ---
History First contact with patient: 12:33 Chief Complaint: LEG PAIN,LEG INJURY Stated Complaint: PAIN, SWELLING IN LEGS,POSS BLOOD CLOT, SENT BY History of Present Illness The patient is a 27 year old female who presents to the Emergency Room with complaints of bilateral, sharp, 7/10 leg pain. The patient also notes the following associated symptoms, leg swelling, worse on the right. This started 4 days ago and is worsening with the pain, but swelling is somewhat less. No history of clots or travel. The patient has tried no relieving factors. Worse with walking. Pt denies LOC, headache, fevers, chills, diaphoresis, visual changes, neck pain, chest pain, breathing difficulties, nausea, vomiting, abdominal pain, back pain, melena, hematochezia, urinary symptoms, numbness, weakness, lymphadenopathy, rash, or other complaints. Review of Systems See HPI for pertinent positives and negatives. A total of ten systems were reviewed and were otherwise negative. Past Medical/Surgical History Medical Problems: (1) Acute cholecystitis (2) Asthma (3) Intrauterine (4) Ovarian cyst (5) Tobacco user (6) Vaginal delivery Surgical Problems: (1) S/P appy (2) S/P cholecystectomy (3) S/P hysterectomy (4) S/P tonsillectomy (5) S/P wrist surgery Family History Diabetes mellitus FHx: cancer FHx: gallbladder disease FHx: heart disease Hypertension Social History Smoking Status: Current Every Day Smoker Alcohol Use: occasionally Drug Use: none Marital Status: single Housing Status: lives with family Occupation Status: unemployed Current/Historical Medications Scheduled PRN Ondansetron Hcl (Zofran), 4 MG PO DAILY PRN for Nausea Physical Exam Vital Signs Date Time Temp Pulse Resp B/P (MAP) Pulse Ox O2 Delivery O2 Flow Rate FiO2 08/17/17 14:57 69 08/17/17 14:39 72 18 119/98 98 Room Air 08/17/17 13:10 97 Room Air 08/17/17 12:32 36.7 83 18 104/71 97 Room Air Physical Exam GENERAL: Awake, alert, well-appearing, in no distress HENT: Normocephalic, atraumatic. Oropharynx unremarkable. EYES: Normal conjunctiva. Sclera non-icteric. NECK: Supple. No nuchal rigidity. FROM. No masses. RESPIRATORY: Clear to auscultation. No wheezes. No rales. Normal respiratory effort. CARDIAC: Normal rate. Normal rhythm. No murmurs. No rubs. Extremities warm and well perfused. Pulses equal. No JVD. GI: Soft, non-distended. No tenderness to palpation. No rebound or guarding. No masses. RECTAL: Deferred. MUSCULOSKELETAL: Atraumatic. Chest examination reveals no tenderness. The back is symmetrical on inspection without obvious abnormality. There is no CVA tenderness to palpation. No joint edema. LOWER EXTREMITIES: Calves are equal size bilaterally and mildly-tender. Trace pedal edema. No discoloration. NEURO: Normal sensorium. No sensory or motor deficits noted. SKIN: No rash or jaundice noted. Medical Decision & Procedures ER Provider Diagnostic Interpretation: Bilateral lower extremity ultrasound imaging was performed and did not reveal any evidence of DVT. Laboratory Results 08/17/17 13:05 Red Blood Count 4.32, Mean Corpuscular Volume 91.9, Mean Corpuscular Hemoglobin 31.3, Mean Corpuscular Hemoglobin Concent 34.0, Mean Platelet Volume 9.5, Neutrophils (%) (Auto) 33.5, Lymphocytes (%) (Auto) 42.9, Monocytes (%) (Auto) 7.4, Eosinophils (%) (Auto) 15.7, Basophils (%) (Auto) 0.3, Neutrophils # (Auto ) 3.09, Lymphocytes # (Auto) 3.96, Monocytes # (Auto) 0.68, Eosinophils # (Auto ) 1.45, Basophils # (Auto) 0.03 08/17/17 13:05 Test 08/17/17 13:05 White Blood Count 9.23 K/uL (4.8-10.8) Red Blood Count 4.32 M/uL (4.2-5.4) Hemoglobin 13.5 g/dL (12.0-16.0) Hematocrit 39.7 % (37-47) Mean Corpuscular Volume 91.9 fL (80-100) Mean Corpuscular Hemoglobin 31.3 pg (25-34) Mean Corpuscular Hemoglobin Concent 34.0 g/dl (32-36) Platelet Count 247 K/uL (130-400) Mean Platelet Volume 9.5 fL (7.4-10.4) Neutrophils (%) (Auto) 33.5 % Lymphocytes (%) (Auto) 42.9 % Monocytes (%) (Auto) 7.4 % Eosinophils (%) (Auto) 15.7 % Basophils (%) (Auto) 0.3 % Neutrophils # (Auto) 3.09 K/uL (1.4-6.5) Lymphocytes # (Auto) 3.96 K/uL (1.2-3.4) Monocytes # (Auto) 0.68 K/uL (0.11-0.59) Eosinophils # (Auto) 1.45 K/uL (0-0.5) Basophils # (Auto) 0.03 K/uL (0-0.2) RDW Standard Deviation 44.2 fL (36.4-46.3) RDW Coefficient of Variation 13.2 % (11.5-14.5) Immature Granulocyte % (Auto) 0.2 % Immature Granulocyte # (Auto) 0.02 K/uL (0.00-0.02) Prothrombin Time 9.8 SECONDS (9.0-12.0) Prothromb Time International Ratio 0.9 (0.9-1.1) Activated Partial Thromboplast Time 26.2 SECONDS (21.0-31.0) Partial Thromboplastin Ratio 1.0 Anion Gap 6.0 mmol/L (3-11) Est Creatinine Clear Calc Drug Dose 82.6 ml/min Estimated GFR () 99.6 Estimated GFR (Non- 85.9 BUN/Creatinine Ratio 6.8 (10-20) Calcium Level 8.3 mg/dl (8.5-10.1) Total Bilirubin 0.2 mg/dl (0.2-1) Aspartate Amino Transf (AST/SGOT) 35 U/L (15-37) Alanine Aminotransferase (ALT/SGPT) 35 U/L (12-78) Alkaline Phosphatase 75 U/L (45-117) Total Protein 6.7 gm/dl (6.4-8.2) Albumin 3.2 gm/dl (3.4-5.0) Globulin 3.5 gm/dl (2.5-4.0) Albumin/Globulin Ratio 0.9 (0.9-2) Human Chorionic Gonadotropin, Qual NEG (NEG) Medications Administered Medications (Trade) Dose Ordered Sig/Pilo Route Start Time Stop Time Status Last Admin Dose Admin Oxycodone HCl (Roxicodone Immediate Rel 5MG Home Pack) 1 [facility] UD ONCE PO 08/17/17 15:00 08/17/17 15:01 DC 08/17/17 15:09 1 [facility] Medical Decision Triage Nursing notes reviewed. The patient's presentation and history were concerning for leg pain and swelling. Etiologies such as DVT, joint effusion, infection, trauma, muscular, lymphedema , idiopathic, CHF, as well as others were entertained. The patient had minimal physical findings on examination. She had good pulses. There is no clear sign of infection. She underwent blood work which revealed a normal CBC and chemistry panel. She had slight hypoalbuminemia noted. This could contribute to some of her swelling. The patient had no evidence of DVT on ultrasound imaging. X-ray imaging or CT imaging was felt to be unnecessary. The patient had no upper leg or abdominal issues. She had no chest pain or difficulty breathing. She initially declined analgesia. She then requested something prior to discharge. She had a issue in the past with pain management. Her PCP had previously requested no prescription from the emergency department. The patient was given a few oxycodone to go home with as she has allergies to numerous other analgesics. She will have close follow-up with her primary physician. If she worsens in any way she will get back to the ER. The exact etiology of her symptoms not obvious at this time although no emergent pathology was found. The patient was educated. She indicated her understanding. By the evaluation outlined above other emergent etiologies such as those listed in the differential, as well as others, were deemed relatively unlikely. The patient was educated about the findings as listed above. All questions were answered and the patient was pleased with the treatment. Return instructions were outlined and the patient was discharged in stable condition. The patient was referred to her PCP for follow-up for a recheck of the current condition. Impression Primary Impression: Bilateral leg pain Departure Information Dispostion Home / Self-Care Referrals Emili Perez D.O. (PCP) Patient Instructions My [facility] Additional Instructions Oxycodone (OxyIR) 5mg: Take 1-2 pills every four hours for breakthrough pain. Avoid alcohol, operating machinery or dangerous equipment, working on ladders or roofs, DRIVING, or situations where being under the influence may be dangerous. It is recommended to use an eles-[id number] stool softener such as Colace, 100mg twice daily while taking this medication to avoid constipation. Acetaminophen(Tylenol) may be used for fever or pain. Use 1000mg every six hours as needed. Avoid using more than 4000mg in a 24 hour period. Warm compresses for 20 minutes at a time four times daily for 2-3 days. Rest and elevate your legs. Return to the ER immediately for any numbness, tingling, severe pain, extreme swelling in the extremity or as needed. Follow-up with your primary care physician as scheduled for a recheck of your current condition.
[2017-08-17 13:10] VITALS: O2SAT 97
[2017-08-17 13:22] LABS: BASO % 0.3 %; BASO ABS # 0.03 K/uL (0-0.2); EOS % 15.7 %; EOS ABS # 1.45 K/uL (0-0.5); HEMATOCRIT 39.7 % (37-47); HEMOGLOBIN 13.5 g/dL (12.0-16.0); IG# 0.02 K/uL (0.00-0.02); LYMPH % 42.9 %; LYMPH ABS # 3.96 K/uL (1.2-3.4); MEAN CELL VOLUME 91.9 fL (80-100); MEAN CORPUSCULAR HEMOGLOBIN 31.3 pg (25-34); MEAN PLATELET VOLUME 9.5 fL (7.4-10.4); MONO % 7.4 %; MONO ABS # 0.68 K/uL (0.11-0.59); NEUT % 33.5 %; NEUT ABS # 3.09 K/uL (1.4-6.5); PLATELET COUNT 247 K/uL (130-400); RED CELL DISTRIBUTION WIDTH CV 13.2 % (11.5-14.5); RED CELL DISTRIBUTION WIDTH SD 44.2 fL (36.4-46.3); WHITE BLOOD COUNT 9.23 K/uL (4.8-10.8)
[2017-08-17 13:32] LABS: INR 0.9 (0.9-1.1); PTT PATIENT 26.2 SECONDS (21.0-31.0)
[2017-08-17 13:40] LABS: ALBUMIN 3.2 gm/dl (3.4-5.0); CALCIUM 8.3 mg/dl (8.5-10.1); CREATININE 0.92 mg/dl (0.60-1.20); POTASSIUM 4.5 mmol/L (3.5-5.1)
[2017-08-17 13:42] LABS: TOTAL PROTEIN 6.7 gm/dl (6.4-8.2)
--- NOTE | 2017-08-17 14:30 | DIAGNOSTIC IMAGING REPORT ---
BILATERAL LOWER EXTREMITY VENOUS DOPPLER HISTORY: bilateral, R>L leg swelling, eval for DVT COMPARISON STUDY: None. FINDINGS: There is normal compressibility, flow, and augmentation within the bilateral lower extremity deep venous systems. IMPRESSION: No DVT within the right or left lower extremity. Electronically signed by: Brent Hurtado M.D. 08/17/2017 2:29 PM Dictated Date/Time: 08/17/2017 2:29 PM
[2017-08-17 14:39] VITALS: BP 119/98; O2SAT 98
[2017-08-17 14:57] VITALS: PULSE 69
[2017-08-17] MEDS ORDERED: OXYCODONE IR HOME PACK PO ONE (15:00)
== END 2017-08-17 15:09 | disposition home or self-care (01) ==
LOC: C.EDB 12:22 → C.EDA 15:09
DX: M79.604 Pain in right leg (principal); M79.605 Pain in left leg; R60.0 Localized edema; E88.09 Other disorders of plasma-protein metabolism, not elsewhere classified; J45.909 Unspecified asthma, uncomplicated; F17.200 Nicotine dependence, unspecified, uncomplicated; Z88.6 Allergy status to analgesic agent; Z83.3 Family history of diabetes mellitus; Z82.49 Family history of ischemic heart disease and other diseases of the circulatory system

== ENCOUNTER 2017-09-04 10:40 | Emergency (ER) | payer OTHER ==
[~2017-09-04] VITALS: Ht 152.4 cm; Wt 75.2 kg
[~2017-09-04 10:40] MED LIST changes: -CIPR1TAB10 PO; +ONDA4TAB46 PO; -OXYC-57 PO
[2017-09-04 10:43] VITALS: TEMP 36.7; Ht 152.4 cm; Wt 75.2 kg
--- NOTE | 2017-09-04 11:33 | DIAGNOSTIC IMAGING REPORT ---
L ANKLE MIN 3 VIEWS ROUTINE CLINICAL HISTORY: Left ankle pain and swelling. No recent trauma. COMPARISON: Left tibia and fibula radiographs September 24, 2015. FINDINGS: Alignment of the left ankle is anatomic. Talar dome is intact. No fracture or suspicious lesion is present. Joint spaces are preserved. There may be mild ankle soft tissue swelling. IMPRESSION: No osseous abnormality of the left ankle. Electronically signed by: Steve Stout M.D. 09/04/2017 11:32 AM Dictated Date/Time: 09/04/2017 11:31 AM
--- NOTE | 2017-09-04 12:27 | EMERGENCY ROOM VISIT NOTE ---
ED Visit Note First contact with patient: 10:48 CHIEF COMPLAINT: Left ankle pain 3 weeks HISTORY OF PRESENT ILLNESS: Patient is a 27-year-old female who presents the emergency department for evaluation of lateral left ankle pain with associated swelling on and off for the last 3 weeks. She has been icing and elevating the area without relief. She states that she has problems with instability in her ankles and often while she is walking. She states she has pain with weightbearing. It radiates to the heel slightly. She denies any foot or knee pain. The patient was seen here recently for lower extremity edema, she states that this condition is unrelated to that visit. REVIEW OF SYSTEMS: Review of systems as per HPI. All other systems reviewed were negative. 10 systems reviewed. PMH: Electronic medical records are reviewed and summarized as above/below. See Problem List. SOCIAL HISTORY: Patient lives at home. Smoker. PHYSICAL EXAM: Vital Signs: Reviewed Nurse's notes. MENTAL STATUS: Alert, oriented, and cooperative. The left ankle is not swollen or ecchymotic. She is tender over the lateral malleolus. No pain over the peroneal tendon or posterior tibialis tendon. Skin is intact and there is no ligamentous instability. No pain over the 5th metatarsal or fibular head. Lisfranc joint is negative. There is no deformity. The foot and toes are warm and well- perfused. Sensation to pain and light touch is intact. EMERGENCY DEPARTMENT COURSE: X-ray reveals no fracture, only the soft tissue swelling. A gel splint were applied to the ankle under my direction and the position was satisfactory. Differential diagnosis include foot verses ankle sprain/fracture, contusion, dislocation, tendinitis, among others. Medication reconciliation: I attest that I have personally reviewed the patient' s current medication list. Blood pressure screening : Patient was found to have normal blood pressure on screening and does not require follow-up. L ANKLE MIN 3 VIEWS ROUTINE CLINICAL HISTORY: Left ankle pain and swelling. No recent trauma. COMPARISON: Left tibia and fibula radiographs September 24, 2015. FINDINGS: Alignment of the left ankle is anatomic. Talar dome is intact. No fracture or suspicious lesion is present. Joint spaces are preserved. There may be mild ankle soft tissue swelling. IMPRESSION: No osseous abnormality of the left ankle. Problem List Medical Problems: (1) Abdominal pain Status: Resolved (2) Acute cholecystitis Status: Resolved (3) Acute gastroenteritis Status: Resolved (4) Asthma Status: Chronic (5) Dehydration Status: Resolved (6) Fall Status: Resolved (7) Intrauterine Status: Resolved (8) Multiple contusions Status: Resolved (9) Ovarian cyst Status: Resolved (10) Pelvic pain Status: Resolved (11) Status: Resolved (12) Tobacco user Status: Chronic (13) UTI (lower urinary tract infection) Status: Resolved (14) Vaginal bleeding Status: Resolved (15) Vaginal delivery Status: Resolved Surgical Problems: (1) S/P appy Status: Resolved (2) S/P cholecystectomy Status: Resolved (3) S/P hysterectomy Status: Resolved (4) S/P tonsillectomy Status: Resolved (5) S/P wrist surgery Status: Resolved Current/Historical Medications No Active Prescriptions or Reported Meds Allergies Coded Allergies: Naproxen (Verified Allergy, Mild, RASH, 08/17/17) Penicillins (Verified Allergy, Unknown, RASH, 08/17/17) Tramadol (Verified Allergy, Unknown, ., 08/17/17) Butorphanol (Unverified Adverse Reaction, Severe, N/V, 08/17/17) Carbamazepine (Unverified Adverse Reaction, Severe, N/V, 08/17/17) Ciprofloxacin (Unverified Adverse Reaction, Severe, N/V, 08/17/17) Clarithromycin (Unverified Adverse Reaction, Severe, N/V, 08/17/17) Erythromycin (Unverified Adverse Reaction, Severe, N/V, 08/17/17) Nalbuphine (Unverified Adverse Reaction, Severe, N/V, 08/17/17) Phenytoin (Unverified Adverse Reaction, Severe, N/V, 08/17/17) Codeine (Verified Adverse Reaction, Intermediate, NAUSEA, 08/17/17) Acetaminophen (Verified Adverse Reaction, Unknown, pain in abdomen, vomiting, 08/17/17) Vital Signs Date Time Temp Pulse Resp B/P (MAP) Pulse Ox O2 Delivery O2 Flow Rate FiO2 09/04/17 12:38 78 20 129/80 98 09/04/17 10:43 36.7 82 20 117/68 96 Room Air Departure Information Impression Primary Impression: Left ankle pain Prescriptions No Active Prescriptions or Reported Meds Referrals Grine, Emili M.,D.O. (PCP) Patient Instructions My [facility] Additional Instructions Ibuprofen(Motrin, Advil) may be used for fever or pain. Use 600mg every six hours as needed. Take with food. Avoid using more than 2400mg in a 24 hour period. Do not use 2400mg per day for more than three consecutive days without physician direction. Prolonged inappropriate use can lead to stomach upset or ulcers. This medication can be taken if you need to drive, work, or perform activities which may be dangerous when taking narcotic pain medication. (AND/OR) Acetaminophen(Tylenol) may be used for fever or pain. Use 1000mg every six hours as needed. Avoid using more than 3000mg in a 24 hour period. This medication can be taken if you need to drive, work, or perform activities which may be dangerous when taking narcotic pain medication. Ice compresses for 20 minutes at a time four times daily for 2-3 days. Use the gel splint as instructed. Rest and elevate your injury. Continue current medications. Followup with your family doctor or orthopedic surgery if no improvement in 5-7 days.
[2017-09-04 12:38] VITALS: BP 129/80; PULSE 78; O2SAT 98
== END 2017-09-04 12:40 | disposition home or self-care (01) ==
LOC: C.EDB 10:42 → C.EDD 12:40
DX: M25.572 Pain in left ankle and joints of left foot (principal); F17.200 Nicotine dependence, unspecified, uncomplicated; Z88.0 Allergy status to penicillin; Z88.8 Allergy status to other drugs, medicaments and biological substances; Z88.5 Allergy status to narcotic agent